=== PATIENT | female | born 1990 | race Hispanic/Latino ===

== ENCOUNTER 2021-06-16 12:43 | Emergency (ER) | payer OTHER ==
[2021-06-16] MEDS ORDERED: NA CHLORIDE 0.9% 0 ML ONE (17:03)
[2021-06-16 17:44] LABS: Absolute Lymphocytes (CBC) 3.1 K/uL (0.7-4.9); Basophils % 0.5 % (0-1.3); Hematocrit 42.9 % (36.0-45.0); Lymphocytes % 26.9 % (15.3-44.8); MPV 9.5 fL (7.6-11.3); RBC Red Blood Cell Count 4.66 M/uL (3.86-4.86)
[2021-06-16 17:48] LABS: Protime INR 0.97
[2021-06-16 18:10] LABS: ALT/SGPT 27 U/L (12-78); Albumin 4.4 g/dL (3.4-5.0); Alkaline Phosphatase 100 U/L (45-117); BUN Blood Urea Nitrogen 10 mg/dL (7-18); Bicarbonate 27 mmol/L (21-32); Bilirubin Direct 0.1 mg/dL (0-0.2); Bilirubin Total 0.9 mg/dL (0.2-1.0); Glucose Level 98 mg/dL (74-106); Potassium 4.4 mmol/L (3.5-5.1); Protein, Total 8.4 g/dL (6.4-8.2); Sodium Level 138 mmol/L (136-145)
[2021-06-16 18:11] LABS: AST/SGOT 19 U/L (15-37)
--- NOTE | 2021-06-16 18:55 | EDPHYS ---
Physician Documentation [facility] Name: Campbell Prince Age: 31 yrs Sex: Female : 1990 Arrival Date: 06/16/2021 Time: 12:44 Bed 17 Private MD: ED Physician Victor M Decker HPI: 06/16 17:01 This 31 yrs old Female presents to ER via Wheelchair with complaints of Psych ras Problem. 17:01 The patient presents to the emergency department with anxiety, over unknown ras circumstances, depression. Onset: The symptoms/episode began/occurred 3 day(s) ago. Past psychiatric history: Prior diagnosis: bipolar disorder, depression. Associated signs and symptoms: Pertinent positives; depression. Severity of symptoms: At their worst the symptoms were mild in the emergency department the symptoms are unchanged. The patient has not experienced similar symptoms in the past. Historical: - Allergies: 13:32 No Known Allergies; ll1 - PMHx: 13:32 Bipolar disorder; anxiety/depression; ll1 - PSHx: 13:32 None; ll1 - Immunization history:: Client reports having NOT received the Covid vaccine. . - Social history:: Smoking status: Patient reports the use of cigarette tobacco products, smokes one-half pack cigarettes per day. ROS: 17:02 Constitutional: Negative for fever, chills, and weight loss, Eyes: Negative for injury, ras pain, redness, and discharge, ENT: Negative for injury, pain, and discharge, Neck: Negative for injury, pain, and swelling, Cardiovascular: Negative for chest pain, palpitations, and edema, Respiratory: Negative for shortness of breath, cough, wheezing, and pleuritic chest pain, Abdomen/GI: Negative for abdominal pain, nausea, vomiting, diarrhea, and constipation, Back: Negative for injury and pain, : Negative for injury, bleeding, discharge, and swelling, MS/Extremity: Negative for injury and deformity, Skin: Negative for injury, rash, and discoloration, Neuro: Negative for headache, weakness, numbness, tingling, and seizure, Allergy/Immunology: Negative for hives, rash, and allergies, Endocrine: Negative for neck swelling, polydipsia, polyuria, polyphagia, and marked weight changes, Hematologic/Lymphatic: Negative for swollen nodes, abnormal bleeding, and unusual bruising. 17:02 Psych: Positive for anxiety, depression. Exam: 17:02 Constitutional: This is a well developed, well nourished patient who is awake, alert, ras and in no acute distress. Head/Face: Normocephalic, atraumatic. Eyes: Pupils equal round and reactive to light, extra-ocular motions intact. Lids and lashes normal. Conjunctiva and sclera are non-icteric and not injected. Cornea within normal limits. Periorbital areas with no swelling, redness, or edema. ENT: Nares patent. No nasal discharge, no septal abnormalities noted. Tympanic membranes are normal and external auditory canals are clear. Oropharynx with no redness, swelling, or masses, exudates, or evidence of obstruction, uvula midline. Mucous membranes moist. Neck: Trachea midline, no thyromegaly or masses palpated, and no cervical lymphadenopathy. Supple, full range of motion without nuchal rigidity, or vertebral point tenderness. No Meningismus. Chest/axilla: Normal chest wall appearance and motion. Nontender with no deformity. No lesions are appreciated. Cardiovascular: Regular rate and rhythm with a normal S1 and S2. No gallops, murmurs, or rubs. Normal PMI, no JVD. No pulse deficits. Respiratory: Lungs have equal breath sounds bilaterally, clear to auscultation and percussion. No rales, rhonchi or wheezes noted. No increased work of breathing, no retractions or nasal flaring. Abdomen/GI: Soft, non-tender, with normal bowel sounds. No distension or tympany. No guarding or rebound. No evidence of tenderness throughout. Back: No spinal tenderness. No costovertebral tenderness. Full range of motion. Skin: Warm, dry with normal turgor. Normal color with no rashes, no lesions, and no evidence of cellulitis. MS/ Extremity: Pulses equal, no cyanosis. Neurovascular intact. Full, normal range of motion. Neuro: Awake and alert, GCS 15, oriented to person, place, time, and situation. Cranial nerves II-XII grossly intact. Motor strength 5/5 in all extremities. Sensory grossly intact. Cerebellar exam normal. Normal gait. 17:02 Psych: Behavior/mood is depressed, Affect is calm, Oriented to person, place, time, Patient has no thoughts/intents to harm self or others. Judgement / Insight is normal. Delusions/hallucinations are not present. Vital Signs: 13:30 BP 120 / 80; Pulse 89; Resp 16; Temp 97.9; Pulse Ox 100% ; Weight 54.43 kg; Height 5 ll1 ft. 1 in. (154.94 cm); Pain 0/10; 13:30 Body Mass Index 22.67 (54.43 kg, 154.94 cm) ll1 [place] Coma Score: 17:02 Eye Response: spontaneous(4). Verbal Response: oriented(5). Motor Response: obeys [facility] commands(6). Total: 15. MDM: 16:05 Patient medically screened. ras 17:04 Differential diagnosis: acute psychotic break, depression. Data reviewed: vital signs, [facility] nurses notes, lab test result(s), EKG. Data interpreted: potline monitor: rate is 89 beats/min, Pulse oximetry: is not applicable for this patient encounter. on room air. Test interpretation: by ED physician or midlevel provider: ECG. Counseling: I had a detailed discussion with the patient and/or guardian regarding: the historical points, exam findings, and any diagnostic results supporting the discharge/admit diagnosis, lab results. 06/17 04:13 ED course: Information sent to multiple psychiatric facilities in hopes of transfer for rn bipolar and manic episode. We were told that does not meet inpatient criteria. Family and patient do not want to stay any longer and plan to follow-up with patient's private psychiatrist. Patient still denies any suicidal or homicidal ideations. Told family that there is still one facility that we have not heard back from and hoping for an opening, they understand this and would still like to go home.. 06/16 16:05 Order name: Acetaminophen; Complete Time: 18:40 [facility] 06/16 16:05 Order name: Basic Metabolic Panel; Complete Time: 18:40 [facility] 06/16 16:05 Order name: CBC with Diff; Complete Time: 18:40 [facility] 06/16 16:05 Order name: ETOH Level; Complete Time: 18:40 [facility] 06/16 16:05 Order name: Hepatic Function; Complete Time: 18:40 [facility] 06/16 16:05 Order name: PT-INR; Complete Time: 18:40 [facility] 06/16 16:05 Order name: Ptt, Activated; Complete Time: 18:40 [facility] 06/16 16:05 Order name: Salicylate; Complete Time: 18:40 [facility] 06/16 16:05 Order name: Urine Drug Screen; Complete Time: 02:05 [facility] 06/16 19:22 Order name: Urine Dipstick-Ancillary; Complete Time: 02:05 [facility] 06/16 19:22 Order name: Urine --Ancillary (enter results) 5 06/16 19:23 Order name: Urine --Ancillary; Complete Time: 02:05 [facility] 06/16 20:41 Order name: SARS-COV-2 RT PCR; Complete Time: 02:05 [facility] 06/16 16:05 Order name: Labs collected and sent; Complete Time: 17:32 [facility] 06/16 16:05 Order name: Suicide Screening ([place]); Complete Time: 17:31 [facility] 06/16 16:05 Order name: Urine Dipstick-Ancillary (obtain specimen); Complete Time: 19:22 [facility] 06/16 16:05 Order name: Urine Test (obtain specimen); Complete Time: 19:22 [facility] Administered Medications: 06/16 19:13 Not Given (MD franklin): NS 0.9% 1000 ml IV at 1 bolus Per protocol; 1000 mL bolus 5 22:45 Drug: Tylenol 1000 mg Route: PO; ms4 Disposition Summary: 06/17/21 04:15 Discharge Ordered Location: Home rn Problem: chronic(06/17/21 04:15) rn Symptoms: have improved(06/17/21 04:15) rn Condition: Stable(06/17/21 04:15) rn Diagnosis - Bipolar disorder, current episode manic without psychotic features, moderate rn Followup: rn - With: Private Physician - When: As needed - Reason: Recheck today's complaints, Re-evaluation by your physician Discharge Instructions: - Discharge Summary Sheet rn - Radha rn - Managing Bipolar Disorder rn Forms: - Medication Reconciliation Form rn - Thank You Letter rn - Antibiotic consumer attorney - Prescription Opioid Use rn Signatures: Dispatcher [employer] EDJosé Luis Lomas MD MD cha Nieto, Roman, MD MD rn Roszak, Josh, PA PA jr8 Aisha Bear RN RN ll1 Katalina Reardon RN RN ms4 Hilario Ya RN ch5 Corrections: (The following items were deleted from the chart) 19:49 18:54 CORONAVIRUS+MR.LAB.BRZ ordered. EDMS EDMS 20:04 16:05 EKG - Nurse/Tech ordered. ras ms4 06/17 04:06/16 18:55 psych doctor ras [place] 06/17 04:06/16 18:55 [facility] ras [place] 06/17 04:06/16 18:55 Higher level of care ras duval 06/17 04:06/16 18:55 Stable ras duval 06/17 04:06/16 18:55 new ras duval 06/17 04:06/16 18:55 have improved ras duval 06/17 04:06/16 18:55 Bipolar disorder, current episode hypomanic ras duval 06/17 04:06/16 18:55 Major depressive disorder, recurrent, moderate ras duval
--- NOTE | 2021-06-16 18:55 | ER ---
Nurse's Notes [facility] Name: Campbell Prince Age: 31 yrs Sex: Female : 1990 Arrival Date: 06/16/2021 Time: 12:44 Bed 17 Private MD: Diagnosis: Bipolar disorder, current episode manic without psychotic features, moderate Presentation: 06/16 13:30 Chief complaint: Patient states: Confusion and seeing things that aren't there for 2-3 ll1 days. Stopped taking bipolar meds about 1 month ago. Not eating or sleeping the past 5 days. Non verbal in triage. Brought in by her little sister. Reported CP at 3 am. Coronavirus screen: Client denies travel out of the [place] in the last 14 days. At this time, the client does not indicate any symptoms associated with coronavirus-19. Ebola Screen: Patient denies travel to an Ebola-affected area in the 21 days before illness onset. Initial Sepsis Screen: Does the patient meet any 2 criteria? No. Patient's initial sepsis screen is negative. Does the patient have a suspected source of infection? No. Patient's initial sepsis screen is negative. Risk Assessment: Do you want to hurt yourself or someone else? Patient reports no desire to harm self or others. Onset of symptoms was June 14, 2021. 13:30 Method Of Arrival: Wheelchair ll1 13:30 Acuity: RITA 2 ll1 Historical: - Allergies: 13:32 No Known Allergies; ll1 - PMHx: 13:32 Bipolar disorder; anxiety/depression; ll1 - PSHx: 13:32 None; ll1 - Immunization history:: Client reports having NOT received the Covid vaccine. . - Social history:: Smoking status: Patient reports the use of cigarette tobacco products, smokes one-half pack cigarettes per day. Screenin:36 Abuse screen: Denies threats or abuse. Denies injuries from another. Nutritional ms4 screening: No deficits noted. Tuberculosis screening: No symptoms or risk factors identified. Fall Risk None identified. Assessment: 16:27 General: Appears in no apparent distress. comfortable, Behavior is calm, quiet, pt is vg1 limited with words. Speaks more to sister at bedside than with staff. Pt sister asked pt what medications has been taken and pt responded " I took the wrong medicines because they keep changing up my medications." When the pt sister asked 'who is they' the pt responded 'the doctors keep mixing up my medications'. Pt also stated 'i dont know the name of medicines but they are for depression and anxiety'.. Pain: Denies pain. Neuro: Level of Consciousness is awake, alert, Oriented to Asked pt 'where are you' pt stated 'at a cancer center'. Asked pt when is your birthday 'pt looked at bracelet and responded with date'. when asked what year it is pt looked at sister and did not respond with answer. Cardiovascular: Patient's skin is warm and dry. Respiratory: Airway is patent Respiratory effort is even, unlabored. GI: No signs and/or symptoms were reported involving the gastrointestinal system. Parent/caregiver reports the patient having Pt sister stated that pt has not ate in about four days. Pt responded 'Im hungry, I just need something to eat'. : No signs and/or symptoms were reported regarding the genitourinary system. EENT: No signs and/or symptoms were reported regarding the EENT system. Derm: Skin is intact, is healthy with good turgor. Musculoskeletal: Circulation, motion, and sensation intact. 16:37 Reassessment: pt given water and a sandwich. vg1 16:43 Reassessment: Entered pt room to begin blood work. Pt was standing at the doorway with vg1 sister. Asked pt to have a seat and pt walked up to me with clinched fist, pt sister grabbed pt, stated security would be called, pt stated 'go ahead and call security I dont care' Provider notified. 17:20 Reassessment: LETICIA inspector technician, stated pt pulled IV out. Provider notified. vg1 18:30 Reassessment: Reassessment: Pt refused saline. wants to see MD. ch5 18:30 Reassessment: MD to bedside. ch5 21:35 Reassessment: patient awaiting acceptance for transfer at this time. ms4 22:43 Reassessment: patient complaining of headache at this time. MD notified. order for ms4 tylenol obtained. 23:54 Reassessment: Patient appears in no apparent distress at this time. No changes from ms4 previously documented assessment. Patient and/or family updated on plan of care and expected duration. Pain level reassessed. Patient is alert, oriented x 3, equal unlabored respirations, skin warm/dry/pink. patient signed transfer paperwork for [facility]. family at bedside. 06/17 04:22 Reassessment: patient reports she no longer wants to wait for a bed. patient's sister ms4 agrees to discharge patient and take her to [facility] tomorrow to try and devise a plan. patient calm and cooperative. no acute distress noted. patient amubulated safely off unit with sister. Psych: 06/16 21:36 [place] Suicide Severity Screening: In the past month, have you wished you were ms4 or wished you could go to sleep and not wake up? Patient responds "No." "In the past month, have you actually had any thoughts of killing yourself?" Patient responds "no." "In your lifetime, have you ever done anything, started to do anything, or prepared to do anything to end your life?" Patient responds "no.". Subjective: Patient's mood is flat affect not answering questions directly. Interventions: Searched person for dangerous items. Urine collected and sent for urine drug test. Patient reassessed during use of restraints. Patient is physically safe. Patient hygiene and elimination needs met. Patient assessed for signs of distress. Patient remains reasonably comfortable at this time. Restraints continue to be necessary for patient and staff safety. Safety Checks: Personal items have been removed. Door is open. Visitors are present. sister. Patient uses marijuana. Commitment: Patient will be a voluntary commitment. 21:39 Subjective: Hallucinations are suspected. Objective: Patient is defensive, guarded, ms4 hostile, irritable, using poor eye contact, Speech is absent, Affect is flat. Vital Signs: 13:30 BP 120 / 80; Pulse 89; Resp 16; Temp 97.9; Pulse Ox 100% ; Weight 54.43 kg; Height 5 ll1 ft. 1 in. (154.94 cm); Pain 0/10; 13:30 Body Mass Index 22.67 (54.43 kg, 154.94 cm) ll1 [place] Coma Score: 17:02 Eye Response: spontaneous(4). Verbal Response: oriented(5). Motor Response: obeys ras commands(6). Total: 15. ED Course: 12:44 Patient arrived in ED. ja2 13:32 Triage completed. ll1 13:33 Arm band placed on. ll1 16:05 José Luis Harris MD is Attending Physician. ras 16:27 Pearl Keller, RN is Primary Nurse. vg1 17:27 Initial lab(s) drawn, by me, sent to lab. Inserted saline lock: 20 gauge in right kj1 antecubital area, using aseptic technique. Blood collected. 17:27 pt pulled iv out of arm after blood draw rn notified. kj1 17:55 Primary Nurse role handed off by Pearl Keller, RN [facility] 17:55 Hilario Ya, SARA is Primary Nurse. 5 18:57 contacted [facility] to evaluate pt. bd 19:00 [facility] states that pt isnt suicidal and doesn't qualify for a screener at this time.bd 19:22 Urine Dipstick-Ancillary Sent. ch5 20:04 Urine --Ancillary (enter results) Sent. ms4 20:47 [facility] pt [place] [facility], and [address] Information was passed on to Katalina Reardon RN, primary nurse. 21:36 No provider procedures requiring assistance completed. ms4 21:39 Patient has correct armband on for positive identification. ms4 23:03 Faxed pt demographics and clinicals to [facility], [address], and [facility]. Information was passed on to Katalina Reardon RN, primary nurse. 23:53 Awaiting bed assignment. ms4 23:55 Initiated transfer at [facility]. Requested covid results, exclusionary tt3 and clinicals be faxed to . Information passed on to ESME Prado, pt provider and Katalina Reardon RN, primary nurse. 06/17 02:03 Eliezer with [facility] called back and stated that their psych physician stated that the tt3 pt does not meet criteria to be inpatient that the patient needs more of a rehab treatment. Information passed on to Charley Rodriguez RN, charge nurse, [facility] Prado, pt provider and Katalina Reardon RN, primary nurse. Following up with [facility] per Taye Meyer's request. 02:11 dispute resolution specialist at [facility] stated the chart was still in review. Information tt3 passed on to Charley Rodriguez, SARA, charge nurse, [facility] Prado, pt provider, and Katalina Reardon, RN, primary nurse. 04:16 Attending Physician role handed off by José Luis Harris MD rn 04:16 Victor M Decker MD is Attending Physician. rn 04:23 Patient did not have IV access during this emergency room visit. ms4 Administered Medications: 06/16 19:13 Not Given ( discontinuedpatricia): NS 0.9% 1000 ml IV at 1 bolus Per protocol; 1000 mL bolus 5 22:45 Drug: Tylenol 1000 mg Route: PO; ms4 Outcome: 18:55 ER care complete, transfer ordered by . ras 06/17 04:15 Discharge ordered by . rn 04:23 Discharged to home ambulatory. ms4 04:23 Condition: stable 04:23 Discharge instructions given to patient, family, Instructed on discharge instructions, follow up and referral plans. Demonstrated understanding of instructions, follow-up care. 04:23 Patient left the ED. ms4 Signatures: Leigh Hannon Corey, MD MD cha Nieto, Roman, MD MD rn Jackson, Kandis kj1 Pearl Keller RN SARA vg1 Aisha Bear RN RN [email or web address] Aramis Beal tt3 Katalina Reardon, RN RN ms4 Hilario Ya RN RN ch5 Caitlin Mobley Corrections: (The following items were deleted from the chart) 06/16 16:32 16:27 General: Appears in no apparent distress. comfortable, Behavior is calm, quiet, vg1 pt is limited with words. Speaks more to sister at bedside than with staff. Pt sister asked pt what medications has been taken and pt responded " I took the wrong medicines because they keep changing up my medications." When the pt sister asked 'who is they' the pt responded 'the doctors keep mixing up my medications'. . vg1
[2021-06-16 19:22] LABS: Urine Blood Negative (Negative); Urine Glucose Negative (Negative); Urine Protein Negative (Negative)
[2021-06-16 19:39] LABS: Barbiturates NEGATIVE (NEGATIVE); Benzodiazepines NEGATIVE (NEGATIVE); Cocaine NEGATIVE (NEGATIVE); METHAMPHETAM NEGATIVE (NEGATIVE); Methadone NEGATIVE (NEGATIVE); Opiates NEGATIVE (NEGATIVE); Phencyclidine NEGATIVE (NEGATIVE); THC Cannibis POSITIVE (NEGATIVE)
[2021-06-16 20:37] LABS: Urine Specific Gravity/Preg 1.015 (1.005-1.030)
[2021-06-16] MEDS ORDERED: ACETAMINOPHEN 500 MG TAB ONE (23:05)
[2021-06-17 04:30] VITALS: BP 120/80; TEMP 97.9; O2SAT 100
== END 2021-06-17 04:23 | disposition home or self-care (01) ==
LOC: ER 12:43
DX: F30.12 Manic episode without psychotic symptoms, moderate (principal); Z91.14 Patient's other noncompliance with medication regimen; F17.210 Nicotine dependence, cigarettes, uncomplicated; Z20.822 Contact with and (suspected) exposure to COVID-19
CPT/HCPCS: 85025; 80048; 36415; 80320; 80329 ×2; 81025; 85610; 80076; 85730; 81003; 80307; 99284; U0003; J7030